=== PATIENT | female | born 1970 | race Caucasian/White ===

== ENCOUNTER 2017-02-15 14:46 | Emergency (ER) | payer MEDICARE ==
[~2017-02-15] VITALS: Ht 162.6 cm; Wt 82.0 kg
[~2017-02-15 14:46] MED LIST: DIAZ10TA PO; DICL100G19 TD; DULO60CA7 PO; HYDR2TAB29 PO; MELO15TA6 PO; METH750T87 PO; OXYC-307 PO; OXYC20TA42 PO; TRAZ300T2 PO
[2017-02-15] MEDS ORDERED: HYDROmorphone 1 MG/ML, 1ML ONE (15:27)
[2017-02-15] MEDS ORDERED: HYDROmorphone 1 MG/ML, 1ML IV ONE (15:30)
[2017-02-15] MEDS ORDERED: HYDROmorphone 1 MG/ML, 1ML IM ONE (15:30)
[2017-02-15 16:25] VITALS: BP 127/81
== END 2017-02-15 16:27 | disposition home or self-care (01) ==
LOC: ED 16:21
DX: M25.551 Pain in right hip (principal); Z90.710 Acquired absence of both cervix and uterus; Z98.51 Tubal ligation status
CPT/HCPCS: 73502; 96372; 99284; J1170

== ENCOUNTER → 2017-04-07 | Outpatient (CLI) | payer MEDICARE ==
[~2017-04-07] MED LIST changes: +FENTANYL PF 100 MCG/2ML ONE; +MIDAZOLAM 1 MG/ML, 5ML ONE
== END | disposition home or self-care (01) ==
LOC: RAD 12:49
PROVIDERS: ATTEND Family Medicine
DX: M50.323 Other cervical disc degeneration at C6-C7 level (principal); M50.223 Other cervical disc displacement at C6-C7 level; M25.78 Osteophyte, vertebrae
CPT/HCPCS: 72141; 99156; 99157; J2250; J3010

== ENCOUNTER 2020-01-31 15:07 | Outpatient (CLI) | payer MEDICARE ==
[~2020-01-31 15:07] MED LIST changes: -FENTANYL PF 100 MCG/2ML ONE; -MIDAZOLAM 1 MG/ML, 5ML ONE
[2020-01-31] MEDS ORDERED: TRAZ-175 PO (16:06)
[2020-01-31] MEDS ORDERED: estradiol PO (16:06)
[2020-01-31] MEDS ORDERED: Vitamin D3 PO (16:06)
[2020-01-31] MEDS ORDERED: magnesium PO (16:06)
[2020-01-31] MEDS ORDERED: CITA20TA6 PO (16:06)
[2020-01-31] MEDS ORDERED: PREG50CA PO (16:06)
[2020-01-31] MEDS ORDERED: VITA400T6 PO (16:06)
[2020-01-31] MEDS ORDERED: LUBI24CA7 PO (16:06)
[2020-01-31] MEDS ORDERED: estroven PO (16:06)
[2020-01-31] MEDS ORDERED: DICL1ADH15 TD (16:06)
[2020-01-31] MEDS ORDERED: LACT1CAP37 PO (16:06)
[2020-01-31] MEDS ORDERED: biotin PO (16:06)
[2020-01-31] MEDS ORDERED: SENN1TAB67 PO (16:06)
[2020-01-31] MEDS ORDERED: CYCL-259 PO (16:06)
== END 2020-01-31 23:59 | disposition home or self-care (01) ==
LOC: STAR 15:07
PROVIDERS: ATTEND Internal Medicine Gastroenterology
DX: Z02.9 Encounter for administrative examinations, unspecified (principal)

== ENCOUNTER → 2020-02-01 | Outpatient (CLI) | payer MEDICARE ==
[~2020-02-01] MED LIST changes: +CITA20TA6 PO; +CYCL-259 PO; +DICL1ADH15 TD; +LACT1CAP37 PO; +LUBI24CA7 PO; +PREG50CA PO; +SENN1TAB67 PO; +TRAZ-175 PO; +VITA400T6 PO; +Vitamin D3 PO; +biotin PO; +estradiol PO; +estroven PO; +magnesium PO
== END | disposition home or self-care (01) ==
LOC: STAR 14:55
PROVIDERS: ATTEND Internal Medicine Gastroenterology
DX: Z01.818 Encounter for other preprocedural examination (principal); Z11.59 Encounter for screening for other viral diseases
CPT/HCPCS: 36415; 87635

== ENCOUNTER 2020-02-06 05:37 | Day surgery (SDC) | payer MEDICARE, MEDICAID ==
[~2020-02-06] VITALS: Ht 162.6 cm; Wt 87.0 kg
[2020-02-06 06:14] VITALS: BP 133/92
[2020-02-06] MEDS ORDERED: LACTATED RINGERS 1,000 ML IV SCH (06:17)
[2020-02-06] MEDS ORDERED: CHLORHEXIDINE 15 ML UDC ONE (06:20)
[2020-02-06] MEDS ORDERED: CHLORHEXIDINE 15 ML UDC MM ONE (06:30)
[2020-02-06] MEDS ORDERED: SUCCINYLCHOLINE 20 MG/ML, 10ML ONE (07:00)
[2020-02-06] MEDS ORDERED: ONDANSETRON 2MG/ML, 2ML ONE (07:00)
[2020-02-06] MEDS ORDERED: DEXAMETHASONE 4 MG/ML, 1ML ONE (07:00)
[2020-02-06] MEDS ORDERED: ROCURONIUM 10 MG/ML,10ML ONE (07:00)
[2020-02-06] MEDS ORDERED: PROPOFOL 10 MG/ML, 100ML IV ONE (07:00)
[2020-02-06] MEDS ORDERED: FENTANYL PF 100 MCG/2ML ONE (07:02)
[2020-02-06] MEDS ORDERED: MIDAZOLAM 1 MG/ML, 2ML ONE (07:02)
[2020-02-06] MEDS ORDERED: EPHEDRINE 50 MG/ML, 1ML IVPush PRN (07:30)
[2020-02-06] MEDS ORDERED: PROMETHAZINE 25 MG/ML, 1ML IVPush PRN (07:30)
[2020-02-06] MEDS ORDERED: hydrALAzine 20 MG/ML, 1ML IV PRN (07:30)
[2020-02-06] MEDS ORDERED: DIAZEPAM 5 MG/ML, 2ML IVPush PRN (07:30)
[2020-02-06] MEDS ORDERED: HYDROmorphone 1 MG/ML, 1ML INJ IVPush PRN (07:30)
[2020-02-06] MEDS ORDERED: LABETALOL 5MG/ML, 20ML IV PRN (07:30)
[2020-02-06] MEDS ORDERED: PROMETHAZINE 12.5 MG SUPP PR PRN (07:30)
[2020-02-06] MEDS ORDERED: MIDAZOLAM 1 MG/ML, 2ML IV PRN (07:30)
[2020-02-06] MEDS ORDERED: ONDANSETRON 2MG/ML, 2ML IVPush PRN (07:30)
[2020-02-06] MEDS ORDERED: ALBUTEROL SULFATE 2.5 MG/3 ML NPPB PRN (07:30)
[2020-02-06] MEDS ORDERED: OXYcodone 5 MG/5 ML ORAL.SOL UDC PO PRN (07:30)
[2020-02-06] MEDS ORDERED: DIPHENHYDRAMINE 50 MG/ML, 1ML IVPush PRN ×2 (07:30)
[2020-02-06] MEDS ORDERED: FENTANYL PF 100 MCG/2ML IV PRN (07:30)
[2020-02-06] MEDS ORDERED: MEPERIDINE/PF 25MG/0.5ML IVPush PRN (07:30)
== END 2020-02-06 08:30 | disposition home or self-care (01) ==
LOC: OUT 05:37
PROVIDERS: ATTEND Internal Medicine Gastroenterology
DX: R10.12 Left upper quadrant pain (principal); K29.50 Unspecified chronic gastritis without bleeding; K59.09 Other constipation; K31.89 Other diseases of stomach and duodenum; F41.9 Anxiety disorder, unspecified; F32.9 Major depressive disorder, single episode, unspecified; J45.909 Unspecified asthma, uncomplicated; M19.90 Unspecified osteoarthritis, unspecified site; G47.00 Insomnia, unspecified; F11.90 Opioid use, unspecified, uncomplicated; Z88.8 Allergy status to other drugs, medicaments and biological substances; Z79.899 Other long term (current) drug therapy; Z90.710 Acquired absence of both cervix and uterus; Z98.890 Other specified postprocedural states; Z87.891 Personal history of nicotine dependence
CPT/HCPCS: 43237; 43239; 88305; J0330; J1100; J2250; J2405; J2704; J3010; J7120

== ENCOUNTER 2020-02-15 11:38 | Outpatient (CLI) | payer MEDICARE, MEDICAID ==
[~2020-02-15 11:38] MED LIST changes: -DICL1ADH15 TD; +DICL1PAT11 TD
== END 2020-02-15 23:59 | disposition home or self-care (01) ==
LOC: CFH 11:38 → EDSTATUS 12:00 → CFH 23:59
PROVIDERS: ATTEND Family Medicine
DX: Z12.31 Encounter for screening mammogram for malignant neoplasm of breast (principal); M19.071 Primary osteoarthritis, right ankle and foot; M76.61 Achilles tendinitis, right leg; M79.672 Pain in left foot; M25.561 Pain in right knee
CPT/HCPCS: 77063; 77067

== ENCOUNTER 2021-03-03 14:16 | Outpatient (CLI) | payer MEDICARE, MEDICAID ==
[~2021-03-03 14:16] MED LIST changes: -CYCL-259 PO; +CYCL10TA2 PO; -DICL1PAT11 TD; +DICL1PAT13 TD; -LACT1CAP37 PO; +LACT1CAP47 PO; -OXYC-307 PO; +OXYC-501 PO
== END 2021-03-03 23:59 | disposition home or self-care (01) ==
LOC: CFH 14:16
PROVIDERS: ATTEND Family Medicine
DX: N64.4 Mastodynia (principal)
CPT/HCPCS: 76642; 77062; 77066; G0279